=== PATIENT | male | born 1995 | race Caucasian/White ===

== ENCOUNTER 2020-05-09 06:50 | Emergency (ER) | payer SELFPAY ==
[~2020-05-09] VITALS: Ht 177.8 cm; Wt 79.4 kg
[2020-05-09 06:59] VITALS: BP 131/79
--- NOTE | 2020-05-09 07:16 | NUR ---
24 Y/O MALE C/O GENERALIZED BACKPAIN RADIATING TO THE THIGHS X 4DAYS, PT STATED NO TRAUMA. PT TOOK TYLENOL AND VOLTAREN GEL TOPICAL TO RELIEF PAIN, BUT STATED NOT RELIEVED. DENIES ANY HISTORY, NKA. RX: TYLENOL & VOLATAREN
--- NOTE | 2020-05-09 07:18 | NUR ---
ermd evaluating pt at bedside
[2020-05-09] MEDS ORDERED: KETOROLAC 60 MG/2 ML VIAL IM ONE (07:30)
--- NOTE | 2020-05-09 07:34 | NUR ---
PT TAKEN TO RAD VIA WC
[2020-05-09 08:24] VITALS: BP 131/79
--- NOTE | 2020-05-09 08:24 | NUR ---
Patient discharged with v/s stable. Written and verbal after care instructions given and explained. Patient alert, oriented and verbalized understanding of instructions. Ambulatory with steady gait. All questions addressed prior to discharge. ID band removed. Patient advised to follow up with PMD. Rx of robaxin & ibuprofen given. Patient educated on indication of medication including possible reaction and side effects. Opportunity to ask questions provided and answered.
== END 2020-05-09 08:24 | disposition home or self-care (01) ==
LOC: MED 06:50
DX: S29.012A Strain of muscle and tendon of back wall of thorax, initial encounter (principal); M54.30 Sciatica, unspecified side; R03.0 Elevated blood-pressure reading, without diagnosis of hypertension; X58.XXXA Exposure to other specified factors, initial encounter; Y93.89 Activity, other specified; Y92.89 Other specified places as the place of occurrence of the external cause; Y99.8 Other external cause status
CPT/HCPCS: 72080; 96372; 99283; J1885